=== PATIENT | female | born 1940 | race Caucasian/White ===

== ENCOUNTER 2021-10-28 06:40 | Inpatient (IN) | payer MEDICARE, OTHER ==
[~2021-10-28] VITALS: Ht 160 cm; Wt 58.6 kg
[2021-10-28 08:32] LABS: Basophils # (auto) 0 10 ^3/uL (0-0.2); Basophils % (auto) 0.8 % (0.0-2.0); Eosinophils # (auto) 0.1 10 ^3/uL (0-0.8); Eosinophils % (auto) 1.3 % (0.0-7.0); Hematocrit 38.8 % (36.0-46.0); Hemoglobin 13.1 g/dL (12.2-16.2); Lymphocytes # (auto) 0.8 10 ^3/uL (0.4-5.4); Lymphocytes % (auto) 16.1 % (10.0-50.0); Mean Corpuscular Hemoglobin 30.2 pg (28.0-32.0); Mean Corpuscular Hgb Conc. 33.7 g/dL (32.0-36.0); Mean Corpuscular Volume 89.4 fL (80.0-100.0); Monocytes # (auto) 0.7 10 ^3/uL (0-1.3); Monocytes % (auto) 14.9 % (0.0-12.0); Neutrophils # (auto) 3.3 10 ^3/uL (1.6-8.6); Neutrophils % (auto) 66.9 % (37.0-80.0); Nucleated Red Blood Cells % 0.1 %; Red Blood Cells 4.34 10^6/uL (4.0-5.20); Red Cell Distribution Width 14.6 % (11.8-14.3)
[2021-10-28 09:02] LABS: Albumin 3.6 g/dL (3.4-5.0); Calcium 8.9 mg/dL (8.5-10.1); Magnesium 2.2 mg/dL (1.6-2.6); Potassium 4.2 mmol/L (3.5-5.1)
[2021-10-28 09:06] LABS: BUN/Creatinine Ratio 20.4; Bilirubin, Total 0.9 mg/dL (0.2-1.0); Total Protein 8.6 g/dL (6.4-8.2)
[2021-10-28] MEDS ORDERED: cefTRIAXone 1GM/50ML D5W 50 ML IV ONE (11:00)
[2021-10-28] MEDS ORDERED: AZITHROMYCIN 500MG/ 250ML 250 ML IV ONE (12:30)
[2021-10-28] MEDS ORDERED: DEXTROSE (50%) 50ML SYRG IV PRN (12:45)
[2021-10-28] MEDS ORDERED: ALBUTEROL SULF 2.5 MG/0.5ML(0.5%) NEB SOLN NEB PRN (13:00)
[2021-10-28 13:37] LABS: Cholesterol 157 mg/dL (< 200); HDL Cholesterol 64 mg/dL (40-59); LDL Cholesterol 83 mg/dL (< 100); Triglycerides 60 mg/dL (< 150)
[2021-10-28 14:01] LABS: INR 1.1 (0.9-1.15)
[2021-10-28 17:12] VITALS: BP 104/48
[2021-10-28] MEDS: ACCU-CHEK COMFORT CURVE STRIP VI SCH ×2 (17:41→22:02)
[2021-10-28] MEDS: InsuLIN REG 1unit/0.01ml Soln (100units/ml) SC SCH ×2 (17:41→22:00)
[2021-10-28 21:03] VITALS: BP 114/78
[2021-10-28] MEDS ORDERED: METF-372 PO (21:16)
[2021-10-28] MEDS ORDERED: LOSA-39 PO (21:16)
[2021-10-28] MEDS ORDERED: EMPA1TAB PO (21:16)
[2021-10-28] MEDS ORDERED: SERT50TA19 PO (21:16)
[2021-10-29 05:24] VITALS: BP 128/64
[2021-10-29 06:40] LABS: Hemoglobin 12.3 g/dL (12.2-16.2); Mean Corpuscular Hemoglobin 30.3 pg (28.0-32.0); Mean Corpuscular Hgb Conc. 34.1 g/dL (32.0-36.0); Mean Corpuscular Volume 88.8 fL (80.0-100.0); Red Blood Cells 4.05 10^6/uL (4.0-5.20); Red Cell Distribution Width 14.7 % (11.8-14.3); White Blood Cell 4.8 10^3/uL (4.4-10.8)
[2021-10-29 06:52] LABS: Potassium 4.4 mmol/L (3.5-5.1)
[2021-10-29] MEDS: InsuLIN REG 1unit/0.01ml Soln (100units/ml) SC SCH ×4 (07:00→21:40)
[2021-10-29] MEDS: ACCU-CHEK COMFORT CURVE STRIP VI SCH ×4 (07:00→21:40)
[2021-10-29 07:06] LABS: BUN/Creatinine Ratio 21.7; Bilirubin, Total 0.6 mg/dL (0.2-1.0); Calcium 8.7 mg/dL (8.5-10.1); Total Protein 7.2 g/dL (6.4-8.2)
[2021-10-29 07:40] LABS: Band Neutrophils % (manual) 0; Basophils % (manual) 0 (0.0-2.0); Blast Cells 0; Metamyelocytes % 0; Myelocytes % 0; Promyelocytes % 0; Reactive Lymphocytes 0
[2021-10-29 08:33] VITALS: BP 134/65
[2021-10-29] MEDS: cefTRIAXone 1GM/50ML D5W 50 ML IV SCH (09:45)
[2021-10-29 12:03] LABS: Eosinophils % (manual) 2 (0-7); Lymphocytes % (manual) 28 (10.0-50.0); Monocytes % (manual) 13 (0-12)
[2021-10-29] MEDS: AZITHROMYCIN 500MG/ 250ML 250 ML IV SCH (12:18)
[2021-10-29 12:50] VITALS: BP 123/54
[2021-10-29 16:30] VITALS: BP 116/56
[2021-10-29 22:00] VITALS: BP 117/58
[2021-10-30 05:00] VITALS: BP 107/53
[2021-10-30] MEDS: InsuLIN REG 1unit/0.01ml Soln (100units/ml) SC SCH ×2 (06:31→12:11)
[2021-10-30] MEDS: ACCU-CHEK COMFORT CURVE STRIP VI SCH ×2 (06:31→12:11)
[2021-10-30 07:21] LABS: Basophils # (auto) 0 10 ^3/uL (0-0.2); Basophils % (auto) 0.5 % (0.0-2.0); Eosinophils # (auto) 0.1 10 ^3/uL (0-0.8); Eosinophils % (auto) 2.7 % (0.0-7.0); Hematocrit 38.6 % (36.0-46.0); Hemoglobin 13.2 g/dL (12.2-16.2); Lymphocytes # (auto) 1.1 10 ^3/uL (0.4-5.4); Lymphocytes % (auto) 24.4 % (10.0-50.0); Mean Corpuscular Hemoglobin 30.6 pg (28.0-32.0); Mean Corpuscular Hgb Conc. 34.1 g/dL (32.0-36.0); Mean Corpuscular Volume 89.7 fL (80.0-100.0); Monocytes # (auto) 0.6 10 ^3/uL (0-1.3); Monocytes % (auto) 12.5 % (0.0-12.0); Neutrophils # (auto) 2.7 10 ^3/uL (1.6-8.6); Neutrophils % (auto) 59.9 % (37.0-80.0); Nucleated Red Blood Cells % 0.1 %; Red Blood Cells 4.31 10^6/uL (4.0-5.20); Red Cell Distribution Width 14.4 % (11.8-14.3); White Blood Cell 4.5 10^3/uL (4.4-10.8)
[2021-10-30 07:24] LABS: Potassium 4.1 mmol/L (3.5-5.1)
[2021-10-30 07:33] LABS: Bilirubin, Total 0.5 mg/dL (0.2-1.0); Calcium 8.5 mg/dL (8.5-10.1); Total Protein 7.5 g/dL (6.4-8.2)
[2021-10-30] MEDS: cefTRIAXone 1GM/50ML D5W 50 ML IV SCH (08:24)
[2021-10-30] MEDS: AZITHROMYCIN 500MG/ 250ML 250 ML IV SCH (08:27)
[2021-10-30 09:16] VITALS: BP 117/57
[2021-10-30] MEDS ORDERED: LEVO750T8 PO (11:21)
[2021-10-30 13:12] VITALS: BP 122/59
== END 2021-10-30 15:30 | disposition home or self-care (01) | DRG 196 ==
LOC: ER 06:40 → OVERFLOW 12:45 → EAST 19:55
PROVIDERS: ADMIT Registered Nurse; ATTEND Internal Medicine Pulmonary Disease
DX: J84.9 Interstitial pulmonary disease, unspecified (principal); J96.01 Acute respiratory failure with hypoxia; E11.9 Type 2 diabetes mellitus without complications; I10 Essential (primary) hypertension; I25.10 Atherosclerotic heart disease of native coronary artery without angina pectoris; Z20.822 Contact with and (suspected) exposure to COVID-19; R00.8 Other abnormalities of heart beat; R74.01 Elevation of levels of liver transaminase levels; Z90.49 Acquired absence of other specified parts of digestive tract; Z95.1 Presence of aortocoronary bypass graft
CPT/HCPCS: 36415; 71045; 71250; 76705; 80053; 80061; 82962; 83036; 83735; 83880; 84484; 85007; 85025; 85027; 85610; 87040; 93005; 94640; 96365; 96368; G0378; J0696